=== PATIENT | female | born 1985 | race Caucasian/White ===

== ENCOUNTER 2023-08-30 06:45 | Emergency (ER) | payer MEDICAID ==
[~2023-08-30] VITALS: Ht 175.3 cm; Wt 106.0 kg
[2023-08-30 06:52] VITALS: TEMP 97.9
[2023-08-30] MEDS ORDERED: ketorolac trometh. 30mg/ml inj. IM ONE (07:30)
[2023-08-30] MEDS: oxyCODONE/APAP 10/325mg tablet PO ONE (07:41)
[2023-08-30] MEDS: ketorolac tromethamine 15mg/ml inj. IM ONE (07:41)
[2023-08-30] MEDS: dexamethasone sod phosphate 10mg/ml inj PO STA (07:42)
[2023-08-30] MEDS ORDERED: AMOX-580 PO (08:15)
[2023-08-30 09:24] VITALS: BP 106/72; PULSE 55; RESP 17; O2SAT 97
== END 2023-08-30 09:30 | disposition home or self-care (01) ==
LOC: ER 06:47
DX: J02.9 Acute pharyngitis, unspecified (principal); G89.18 Other acute postprocedural pain; Z79.899 Other long term (current) drug therapy
CPT/HCPCS: 96372; 99283; J1100; J1885

== ENCOUNTER 2025-03-16 22:28 | Emergency (ER) | payer MEDICAID ==
[~2025-03-16] VITALS: Ht 175.3 cm; Wt 87.0 kg
[2025-03-16 22:46] VITALS: TEMP 98.6
[2025-03-16 23:36] LABS: MEAN PLATELET VOLUME 8.4 FL (7.4-10.4); RED CELL DISTRIBUTION WIDTH 14.1 % (11.5-14.5)
[2025-03-16 23:41] LABS: URINE HCG POSITIVE (NEG)
[2025-03-16 23:47] LABS: LEUKOCYTE ESTERASE ,URINE NEGATIVE (Neg); NITRITES, URINE NEGATIVE (Neg); OCCULT BLOOD,URINE TRACE-INTACT (Neg)
[2025-03-16 23:54] LABS: CREATININE 0.70 MG/DL (0.40-0.90); TOTAL CARBON DIOXIDE 23.2 MMOL/L (24-32); eCRCL 113 ML/MIN; eGFR > 90 ML/MIN
[2025-03-16 23:58] LABS: UA COLLECTION TYPE CLN CATCH MIDSTREAM
[2025-03-16 23:59] LABS: AMORPHOUS URATES 2+; MUCUS STRANDS FEW /LPF (Neg); SQUAMOUS EPITHELIAL CELL,UR FEW /LPF (FEW)
--- NOTE | 2025-03-17 00:07 | Physician Documentation ---
History of Present Illness ~ Chief Complaint: Abdominal Pain Stated Complaint: ABD/LEG PAIN Time Seen by MD: 23:47 Primary Medical Doctor: n/a Mode of Arrival: POV HPI Patient presents to the emergency room for evaluation of right-sided pelvic pain. Onset of pain this evening. She did have recent miscarriage a proximally two months ago. Medication Reconciliation Allergies: Coded Allergies: No Known Allergies (Unverified , 08/30/23) Past Medical History Past Medical History: No Pertinent History Past Surgical History: tonsillectomy Lives with: Family Lives In: Home Review of Systems ROS All review of systems negative except as per HPI Physical Exam Vital Signs: Temperature: 98.6, Heart Rate: 65, Respiratory Rate: 18, BP: 161/89, Pulse Oximetry: 98, Weight: 87.000 Oxygen Flow Rate: 0 Physical Exam General: Patient is awake, alert, oriented x4 in no acute distress Head: Normocephalic and atraumatic. Eyes: Conjunctival normal. EOMI. PERRL. ENT: Mucous membranes moist. Neck: Supple, trachea is midline. Chest: Clear to auscultation bilaterally without rales, rhonchi, or wheezes. There is no accessory muscle use or retractions. Cardiac: RRR without murmurs, gallops, or rubs. Abd: Right adnexal tenderness to palpation. Positive bowel sounds, no distention Progress Results/Orders Results/Orders Orders - RAMSEY OQUENDO MD US OB (03/17/25 00:04) Completed Orders - RAMSEY OQUENDO MD Hcg, Ur Ql (03/16/25 22:49) Cbc/Diff (03/16/25 22:49) BMP (03/16/25 22:49) Lipase (03/16/25 22:49) CMP (03/16/25 22:49) Hcg Serum Qt (03/16/25 23:48) Ua W/Microscopic, Cult If Ind (03/16/25 23:25) US OB (03/17/25 00:04) Vital Signs 03/16/25 03/16/25 03/16/25 03/17/25 22:46 23:17 23:23 01:36 Temp 98.6 Pulse 58 65 54 Resp 20 17 18 16 B/P (MAP) 137/90 161/89 (113) 129/76 (93) Pulse Ox 100 98 96 O2 Flow Rate 0 03/17/25 03/17/25 03/17/25 03/17/25 03:15 04:49 07:51 08:00 Pulse 55 54 62 Resp 16 15 16 16 B/P (MAP) 135/66 (89) 143/78 (99) 129/64 (85) Pulse Ox 97 96 99 O2 Flow Rate 0 0 03/17/25 08:27 Pulse 68 Resp 16 B/P (MAP) 102/74 (83) Pulse Ox 98 O2 Flow Rate 0 Laboratory Tests Test 03/16/25 23:23 03/16/25 23:25 White Blood Count 11.3 H Red Blood Count 4.31 Hemoglobin 12.5 Hematocrit 36.4 Mean Corpuscular Volume 84.4 Mean Corpuscular Hemoglobin 29.1 Mean Corpuscular Hemoglobin Concent 34.4 Red Cell Distribution Width 14.1 Platelet Count 267 Mean Platelet Volume 8.4 Neutrophils (%) (Auto) 51.6 Lymphocytes (%) (Auto) 37.0 Monocytes (%) (Auto) 10.5 Eosinophils (%) (Auto) 0.2 Basophils (%) (Auto) 0.7 Neutrophils # (Auto) 5.8 Lymphocytes # (Auto) 4.2 Monocytes # (Auto) 1.2 H Eosinophils # (Auto) 0.0 Basophils # (Auto) 0.1 CBC Comment Sodium Level 136 Potassium Level 4.0 Chloride Level 103 Carbon Dioxide Level 23.2 L Anion Gap 10 Blood Urea Nitrogen 15 Creatinine 0.70 Estimated GFR/1.73 m2 > 90 BUN/Creatinine Ratio 21.4 H Glucose Level 98 Calcium Level 8.7 Total Bilirubin 0.5 Aspartate Amino Transf (AST/SGOT) 16 Alanine Aminotransferase (ALT/SGPT) 19 Alkaline Phosphatase 64 Total Protein 7.4 Albumin 4.0 Globulin 3.4 Albumin/Globulin Ratio 1.2 Lipase 36 HCG Beta Subunit 433 Chemistry Comments Urine Specimen Description Cln catch midstream Urine Color Yellow Urine Clarity Clear Urine pH 6.0 Urine Specific [place] 1.025 Urine Protein Negative Urine Glucose (UA) Negative Urine Ketones Negative Urine Occult Blood Trace-intact Urine Nitrite Negative Urine Bilirubin Negative Urine Urobilinogen 0.2 Urine Leukocyte Esterase Negative Urine RBC 0-2 Urine WBC 0-4 Urine Squamous Epithelial Cells Few Urine Amorphous Urates 2+ Urine Bacteria None seen Urine Mucus Few Urine Culture Indicated Not ind Volume Urine Centrifuged 10 ml Urine HCG, Qualitative Positive Urine Comment Re-Evaluation Re-Evaluation : Re-Evaluation: Unchanged Progress 40 year old female signed out to me by Dr. Oquendo with R groin pain, possible ectopic, to follow up on US results which did appear to be concerning for a possible ectopic in the R adnexa/cul-de-sac with free fluid. 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 The patient elected to leave AMA despite a thorough discussion of the risks of leaving including from hemorrhage, increasing pain. Medical Decision Making Additional information obtaine: N/A Findings See progress note Diff Dx GI Bleed:Consideration: Include: AE fistula, Angiodysplasia, Bleeding diathesis, Blood loss anemia, Carcinoma, Diverticulosis, Diverticulitis, Esophag eal varicies, Esophagitis, Gastritis, Gastroenteritis, Inflammatory BD, Jenny- Sky syndrome, Meckel's diverticulum, PUD, Other Diff Dx Pain:Considerations: Include: AAA, -Complete, - Incomplete, -Inevitable, -Missed, -Threatened, Abruptio placentae, Angina/MO, Aortic dissection, Appendicitis, Bowel obstruction, Cholangitis, Cholecystitis, Cholelithasis, Constipation, Diverticular disease, Dysmenorrhea, Ectopic , Esophageal rupture, Esophagitis, Gastritis/PUD, Gastroenteritis, GI hemorrhage, Hernia, Hepatitis, Inflammatory BD, Ischemic bowel, Mass, Ovarian cyst/torsion, Pancreatitis, PID, Porphyria, Trauma, intraabdominal, Urinary obstruction, Urinary tract infection, Urolithiasis, Other Diff Dx N/V/D:Considerations: Include: Appendicitis, Bowel obstruction, Dehydration, DKA, Diarrhea - bacterial, Diarrhea - parasitic, Diarrhea - viral, Diverticulitis, Diverticulosis, Drug toxicity, Electrolyte imbalance, Food poisoning, Gastroenteritis, GE reflux, GI bleed, Hepatitis, Hernia, Hypovolemia, Hypotension, Inflammatory BD, Impaction, Malnutrition, Pancreatitis, , PUD, Renal failure, Urolithiasis, Urinary obstruction, UTI, Other Diff Dx Rectal:Considerations: Include: Fissure, Fistula, Foreign body, Impaction, Perirectal abscess, Rectal prolapse, Subcutaneous abscess, Thrombosed hemorrhoid, Ulcer, UTI, Other Additional Comments ddx = appendicitis, kidney stone, ectopic Departure Disposition: LEFT AGAINST MEDICAL ADVICE Impression: Primary Impression: Ectopic Condition: Guarded Discharge Instructions: Ectopic Referrals: NO PRIMARY CARE PROVIDER (PCP) Education Educated: Patient Educated regarding: diagnosis, treatment, prognosis, need for follow up Signature Scribe Signature: . Attestation: The note accurately reflects work and decisions made by me.Ramsey Oquendo MD 03/20/25 23:44 . RAMSEY OQUENDO MD Mar 17, 2025 00:07 THEODORA CHOPRA MD Mar 17, 2025 09:51
[2025-03-17] MEDS: ketorolac trometh 30MG/ML vial 30 MG/ML VIAL IV ONE (07:51)
--- NOTE | 2025-03-17 08:19 | RADIOLOGY REPORT ---
OB ULTRASOUND <14 WEEKS: HISTORY: adenexal tenderness in preg TECHNIQUE: Multiple real-time grayscale sonographic images of the pelvis with duplex Doppler color flow, spectral and M-mode analysis. TRANSDUCERS: Transabdominal and transvaginal COMPARISON: None FINDINGS: The uterus measures 7.3 x 4.7 x 5.0 cm. Endometrium measures 0.5 cm. The cervix is not visualized. Right ovary measures 4.5 x 3.0 x 2.9 cm with normal Doppler color flow. Left ovary measures 2.8 x 1.9 x 1.3 cm with normal Doppler color flow. No intrauterine is visualized. Heterogeneous soft-tissue structure in the pelvic cul-de-sac with gestational sac type appearing structure measuring 2.5 x 2.1 x 2.5 cm. Small volume free fluid is present in the pelvis. IMPRESSION: No intrauterine is visualized. Soft-tissue structure with possible gestational sac type appearing structure is present in the pelvic cul-de-sac measuring 2.5 x 2.1 x 2.5 cm. Ectopic is not completely excluded. Clinical correlation advised.
[2025-03-17 08:27] VITALS: BP 102/74; PULSE 68; RESP 16; O2SAT 98
== END 2025-03-17 10:31 | disposition left against medical advice (07) ==
LOC: ER 22:30
DX: O00.90 Unspecified ectopic pregnancy without intrauterine pregnancy (principal); R10.21 Pelvic and perineal pain right side; Z90.89 Acquired absence of other organs; Z3A.01 Less than 8 weeks gestation of pregnancy
CPT/HCPCS: 36415; 76801; 76817; 80053; 81001; 81025; 83690; 84702; 85025; 93976; 96374; 99285; J1885